=== PATIENT | male | born 1935 | race Caucasian/White ===

== ENCOUNTER 2017-06-17 13:43 | Observation (INO) | payer OTHER ==
[~2017-06-17 13:43] MED LIST: ALLO300 PO; AMLO5TAB22 PO; ASPI81 PO; GNP50LIQ PO; META28.3 PO; MILK250C2 PO; NAPR-576 PO; PERC5TAB12 PO; POLY255S PO; SIMV20TA PO; TOPR50TA PO
[2017-06-17 14:03] VITALS: BP 116/66; PULSE 58; RESP 18; TEMP 97.8; O2SAT 95
--- NOTE | 2017-06-17 14:08 | PD ---
HPI Chief Complaint: General Weakness Time Seen by Provider: 14:08 Travel History International Travel<30 days: No Contact w/Intl Traveler<30days: No Traveled to known affect area: No History of Present Illness HPI 82-year-old male came to the emergency room by EMS for a near syncopal episode. Patient says that when he woke up this morning he was feeling fine. He usually does not exercise much and sits in his chair. But today he decided to pull weeds out of the garden. It was very hot and he went outside and at that for one hour with his friend. After that the decided to sit down and drink beer. Patient says that he had eaten a bowl of cereal in the morning but did not drink much fluid. While he drank about half a can of the beer he started feeling very woozy. Patient says he cannot describe it very well but he has never felt like this before. He did not pass out but as per his friend they got glassy eyed. He asked his friend called 911 and get the EMS since this feeling did not go away. Patient did not have any chest pain or headache during that time. When EMS arrived he was unable to stand up and walk to the ambulance because the wooziness got worse. Currently patient says he feels little better. His heart rate upon arrival was in high 50s. Patient does not have any cardiac history. He is on high blood pressure medication. His 2 daughters are here both of home work in this hospital. As per them usually does not drink much fluid. He is awake and answering questions appropriately. He says that during this episode his clothes got completely drenched in sweat. EMS had to take his shirt off. [facility] Past Medical History Narrative Medical List of his past medical, surgical, social and family history is reviewed from the nursing note. Arthritis: Yes Asthma: No Autoimmune Disease: No Anxiety: No Depression: No Heart Rhythm Problems: No Cancer: No Cardiovascular Problems: No High Cholesterol: Yes Chest Pain: No Congestive Heart Failure: No COPD: No Cerebrovascular Accident: No Diabetes: No Endocrine: No Gastrointestinal Disorders: Yes (REFLUX) GERD: No Glaucoma: Yes Genitourinary: No Hepatitis: No Hiatal Hernia: No Hypertension: Yes Immune Disorder: No Kidney Stones: No Musculoskeletal: Yes (BACK, SHOULDERS, ARTHRITIS) Neurologic: Yes (FEET) Psychiatric: No Reproductive: No Respiratory: No Migraines: No Renal Failure: No Seizures: No Sleep Apnea: No Thyroid Disease: No Ulcer: No ?: Not Past Surgical History Abdominal Surgery: No AICD: No Arteriovenous Shunt: No Cardiac Surgery: No Ear Surgery: No Endocrine Surgery: No Eye Surgery: Yes (LEFT EYE, LEFT EYE CATARACT SX) Genitourinary Surgery: No Insulin Pump: No Joint Replacement: Yes (BILAT KNEES) Oral Surgery: No Pacemaker: No Thoracic Surgery: No Other Surgery: Yes Social History Alcohol Use: Yes (2 DRINKS A DAY) Tobacco Use: No Substance Use: No Allergies-Medications (Allergen,Severity, Reaction): Coded Allergies: acetaminophen (Unverified Allergy, Severe, Hallucinations, 06/17/17) cefazolin (Unverified Allergy, Severe, FEVER, 06/17/17) clindamycin (Unverified Allergy, Severe, FEVER, 06/17/17) hydrocodone (Unverified Allergy, Severe, Hallucinations, 06/17/17) tizanidine (Unverified Allergy, Severe, Lethargy, 06/17/17) morphine (Unverified Adverse Reaction, Mild, DOES NOT RELIEVE PAIN, ) Comments List of his allergies reviewed from the nursing note. Reported Meds & Prescriptions Reported Meds & Active Scripts Active Reported Aspirin Adult Low Strength (Aspirin) 81 Mg Tabdr 81 Mg PO DAILY Naprosyn (Naproxen) 500 Mg Tab 500 Mg PO BID Allopurinol 300 Mg Tab 300 Mg PO DAILY Zocor (Simvastatin) 20 Mg Tab 20 Mg PO HS Toprol XL (Metoprolol Succinate) 50 Mg Tab 50 Mg PO HS Amlodipine (Amlodipine Besylate) 5 Mg Tab 5 Mg PO DAILY Narrative Medication List of his home medications reviewed from the nursing note. Review of Systems Except as stated in HPI: all other systems reviewed are Neg Physical Exam Narrative GENERAL: Awake, alert, elderly, moderate distress SKIN: Focused skin assessment warm/dry. HEAD: Atraumatic. Normocephalic. EYES: Pupils equal and round. No scleral icterus. No injection or drainage. ENT: No nasal bleeding or discharge. Mucous membranes pink and moist. NECK: Trachea midline. No JVD. CARDIOVASCULAR: Regular rate and rhythm. No murmur appreciated. RESPIRATORY: No accessory muscle use. Clear to auscultation. Breath sounds equal bilaterally. GASTROINTESTINAL: Abdomen soft, non-tender, nondistended. Hepatic and splenic margins not palpable. MUSCULOSKELETAL: No obvious deformities. No clubbing. No cyanosis. No edema. NEUROLOGICAL: Awake and alert. No obvious cranial nerve deficits. Motor grossly within normal limits. Normal speech. PSYCHIATRIC: Appropriate mood and affect; insight and judgment normal. Data Data Last Documented VS Vital Signs Date Time Temp Pulse Resp B/P (MAP) Pulse Ox O2 Delivery O2 Flow Rate FiO2 06/17/17 15:10 62 16 122/67 (85) 59 16 119/67 (84) 65 17 131/69 (89) 06/17/17 14:10 98 Room Air 06/17/17 14:03 97.8 Orders Orders Iv Access Insert/Monitor (06/17/17 14:25) Electrocardiogram (06/17/17 ) Complete Blood Count With Diff (06/17/17 14:25) Basic Metabolic Panel (Bmp) (06/17/17 14:25) Coag Profile (06/17/17 14:25) Ckmb (Isoenzyme) Profile (06/17/17 14:27) Troponin I (06/17/17 14:27) Chest, Single Ap (06/17/17 14:27) Sodium Chlorid 0.9% 500 Ml Inj (Ns 500 M (06/17/17 14:30) Orthostatic Vital Signs (06/17/17 15:04) Admit Order (Ed Use Only) (06/17/17 16:22) Labs Laboratory Tests Test 06/17/17 14:20 White Blood Count 9.0 TH/MM3 Red Blood Count 4.75 MIL/MM3 Hemoglobin 15.6 GM/DL Hematocrit 47.2 % Mean Corpuscular Volume 99.2 FL Mean Corpuscular Hemoglobin 32.9 PG Mean Corpuscular Hemoglobin Concent 33.2 % Red Cell Distribution Width 13.9 % Platelet Count 184 TH/MM3 Mean Platelet Volume 8.7 FL Neutrophils (%) (Auto) 74.5 % Lymphocytes (%) (Auto) 15.2 % Monocytes (%) (Auto) 7.2 % Eosinophils (%) (Auto) 2.7 % Basophils (%) (Auto) 0.4 % Neutrophils # (Auto) 6.7 TH/MM3 Lymphocytes # (Auto) 1.4 TH/MM3 Monocytes # (Auto) 0.6 TH/MM3 Eosinophils # (Auto) 0.2 TH/MM3 Basophils # (Auto) 0.0 TH/MM3 CBC Comment DIFF FINAL Differential Comment Prothrombin Time 11.5 SEC Prothromb Time International Ratio 1.0 RATIO Activated Partial Thromboplast Time 24.3 SEC Blood Urea Nitrogen 13 MG/DL Creatinine 1.06 MG/DL Random Glucose 88 MG/DL Calcium Level 8.5 MG/DL Sodium Level 144 MEQ/L Potassium Level 4.9 MEQ/L Chloride Level 113 MEQ/L Carbon Dioxide Level 23.5 MEQ/L Anion Gap 8 MEQ/L Estimat Glomerular Filtration Rate 67 ML/MIN Total Creatine Kinase 74 U/L Troponin I LESS THAN 0.02 NG/ML MDM Medical Decision Making Medical Screen Exam Complete: Yes Emergency Medical Condition: Yes Medical Record Reviewed: Yes Interpretation(s) Twelve-lead EKG was reviewed by me. Normal sinus rhythm, normal axis, bradycardia, nonspecific ST-T wave changes. Heart rate of 57 bpm. Differential Diagnosis Dehydration, orthostatic hypotension, symptomatic bradycardia, cardiac arrhythmia Narrative Course 4:15 PM blood test results of back and within acceptable limit. Although his sodium and chloride are on the higher range which tells me he probably was somewhat hypovolemic. Patient received 1 L of IV fluid bolus. Chest x-rays within normal limits. Patient was not orthostatic. I explained to the patient that my main concern is if patient had either a significantly low heart rate or a cardiac arrhythmia which could have been the cause of this event. 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 Patient and his daughters agreed. Patient's orthostatic vital signs were negative. Patient says that he has never felt like this before and he thought he was going to . Procedures EKG Prior to Arrival: No Diagnosis Primary Impression: Symptomatic bradycardia Additional Impression: Near syncope Admitting Information Admitting Physician Requests: Observation Renee Cueto MD Jun 17, 2017 14:08
[2017-06-17] MEDS ORDERED: SODIUM CHLORID 0.9% 500 ML INJ 500 ML IV ONE (14:30)
[2017-06-17 15:10] VITALS: BP_SYST 119; BP_SYST 122; BP_SYST 131; BP_DIAS 67; BP_DIAS 69; RESP 16; RESP 17
[2017-06-17] MEDS ORDERED: ZOCO20TA PO (15:22)
[2017-06-17] MEDS ORDERED: PERC5TAB12 PO (15:22)
[2017-06-17] MEDS ORDERED: AMLO5TAB2 PO (15:22)
[2017-06-17] MEDS ORDERED: NAPR500 PO (15:22)
[2017-06-17] MEDS ORDERED: TOPR50TA PO (15:22)
[2017-06-17] MEDS ORDERED: ALLO300T2 PO (15:22)
[2017-06-17] MEDS ORDERED: ASPI1TAB91 PO (15:22)
[2017-06-17 15:25] LABS: AUTOMATED NEUTROPHIL # 6.7 TH/MM3 (1.8-7.7); BASOPHIL % 0.4 % (0.0-2.0); EOSINOPHIL # 0.2 TH/MM3 (0-0.4); EOSINOPHIL % 2.7 % (0.0-4.0); HEMATOCRIT 47.2 % (39.0-51.0); HEMO FLAGS DIFF FINAL; LYMPH % 15.2 % (9.0-44.0); LYMPHOCYTE # 1.4 TH/MM3 (1.0-4.8); MEAN CELL VOLUME 99.2 FL (80.0-100.0); MEAN CORPUSCULAR HEMOGLOBIN 32.9 PG (27.0-34.0); MEAN CORPUSCULAR HGB CONC 33.2 % (32.0-36.0); MONO % 7.2 % (0.0-8.0); NEUT % 74.5 % (16.0-70.0); PLATELET COUNT 184 TH/MM3 (150-450); RED BLOOD COUNT 4.75 MIL/MM3 (4.50-5.90); RED CELL DISTRIBUTION WIDTH 13.9 % (11.6-17.2)
[2017-06-17 15:44] LABS: APTT (PATIENT) 24.3 SEC (24.3-30.1); PROTHROMBIN TIME - PATIENT 11.5 SEC (9.8-11.6)
[2017-06-17 15:49] LABS: BICARBONATE 23.5 MEQ/L (21.0-32.0); POTASSIUM 4.9 MEQ/L (3.5-5.1)
[2017-06-17 15:56] LABS: CREATINE KINASE 74 U/L (39-308)
--- NOTE | 2017-06-17 16:11 | RADRPT ---
EXAM DATE/TIME: 06/17/2017 15:22 [place] COMPARISON: No previous studies available for comparison. INDICATIONS : Short of breath. MEDICAL HISTORY : None. SURGICAL HISTORY : None. ENCOUNTER: Initial ACUITY: 1 day PAIN SCORE: 0/10 LOCATION: Bilateral chest FINDINGS: Minimal linear parenchymal opacities in the left lung base and left midlung. No significant focal ple ural or parenchymal opacities. Cardiomediastinal contours are within normal limits. Bony thorax is in tact. CONCLUSION: 1. Mild left lower lobe and midlung atelectasis/scarring. 2. Otherwise, no acute cardiopulmonary disease. Chapincito Avina MD on June 17, 2017 at 16:08 Board Certified Radiologist. This report was verified electronically.
--- NOTE | 2017-06-17 17:45 | HHI.HP ---
[facility] Service Family Medicine Primary Care Physician Lyle Kaufman, DO Admission Diagnosis Near syncope, symptomatic bradycardia Diagnoses: International Travel<30 Days: No Contact w/Intl Traveler<30days: No Known Affected Area: No History of Present Illness Mr. Martinez is a 82-year-old male with a past medical history of hypertension, hyperlipidemia, spinal stenosis, AAA, and gout presents to the ER via EMS for near syncopal episode. The patient states that after working outside for approximately 1 hour, he sat down to drink a beer initiated when he became diaphoretic and dizzy. He also states that he had "dampened hearing" and felt like he can only hear and an echo. He cannot describe the events very well, but states this episode scared him and he had never felt like this before. He was accompanied by a family friend who reported to the EMS that he became "glassy" and "just didn't seem right." At that time he denied any blurry vision, chest pain, or shortness of breath. EMS was then called for transport to the emergency room as the patient could not walk at that time. He received fluids and transport to the emergency room and states he started to feel better. He reports the entire episode lasted approximately 45 minutes. He had little to drink this morning and is on blood pressure medication currently. He currently reports no chest pain, shortness of breath, diaphoresis, abdominal pain, NVD, or calf tenderness. (Albert Boston MD R2) Review of Systems Constitutional: DENIES: Fever, Chills Eyes: COMPLAINS OF: Blurred vision Ears, nose, mouth, throat: DENIES: Vertigo, Throat pain, Running Nose Respiratory: DENIES: Cough, Shortness of breath Cardiovascular: DENIES: Chest pain, Palpitations, Lower Extremity Edema, Orthopnea Gastrointestinal: DENIES: Abdominal pain, Diarrhea, Nausea, Vomiting Genitourinary: DENIES: Dysuria Musculoskeletal: DENIES: Joint pain Integumentary: DENIES: Rash Neurologic: DENIES: Headache Psychiatric: DENIES: Mood changes (Albert Boston MD R2) Past Family Social History Past Medical History Hypertension Hyperlipidemia Arthritis Gout Spinal stenosis Cataracts Abdominal aortic aneurysm Erectile dysfunction Past Surgical History Tonsillectomy Left rotator cuff Right rotator cuff Right carpal tunnel Left knee replacement Right knee and replacement Cataract removal L3/S1 laminectomy L5/S1 microdiscectomy (Albert Boston MD R2) Allergies: Coded Allergies: acetaminophen (Unverified Allergy, Severe, Hallucinations, 06/17/17) cefazolin (Unverified Allergy, Severe, FEVER, 06/17/17) clindamycin (Unverified Allergy, Severe, FEVER, 06/17/17) hydrocodone (Unverified Allergy, Severe, Hallucinations, 06/17/17) tizanidine (Unverified Allergy, Severe, Lethargy, 06/17/17) morphine (Unverified Adverse Reaction, Mild, DOES NOT RELIEVE PAIN, ) Family History Father -brain malignancy Mother -none reported Sister - ovarian cancer, COPD, vascular Social History Lives in [place] by himself with his dog. Able to complete ADLs. [place] - denies history Alcohol - 1-2 drinks per day 2oz of hard liquor Illicit - denies history (Albert Boston MD R2) Physical Exam Vital Signs Vital Signs Date Time Temp Pulse Resp B/P (MAP) Pulse Ox O2 Delivery O2 Flow Rate FiO2 06/17/17 15:10 62 16 122/67 (85) 59 16 119/67 (84) 65 17 131/69 (89) 06/17/17 14:10 58 18 98 Room Air 06/17/17 14:03 97.8 58 18 116/66 (83) 95 Physical Exam GENERAL: Well-nourished, well-developed elderly gentleman lying in bed in no acute distress. SKIN: Warm and dry. No rash. Currently not diaphoretic. HEENT: Atraumatic, normocephalic with EOMI. PERRLA. Mucous membranes dry. No rhinorrhea. Oropharynx clear with no erythema or exudate. No JVD, LAD, or thyroid abnormality appreciated. CARDIOVASCULAR: Regular rate and rhythm without obvious murmurs, gallops, or rubs. RESPIRATORY: Clear to auscultation bilaterally with no CRW. No increased work of breathing. GASTROINTESTINAL: Abdomen soft, non-tender, nondistended with positive bowel sounds. No masses appreciated. MUSCULOSKELETAL: No cyanosis or edema. Strength grossly WNL. 2+ pulses in all 4 extremities. No calf tenderness. BACK: Nontender without obvious deformity. No CVA tenderness. NEURO/PSYCH: Afocal. Awake, alert, and oriented x3. Cranial nerves II through XII intact. Normal sensation, strength, and range of motion. Laboratory Laboratory Tests Test 06/17/17 14:20 White Blood Count 9.0 Red Blood Count 4.75 Hemoglobin 15.6 Hematocrit 47.2 Mean Corpuscular Volume 99.2 Mean Corpuscular Hemoglobin 32.9 Mean Corpuscular Hemoglobin Concent 33.2 Red Cell Distribution Width 13.9 Platelet Count 184 Mean Platelet Volume 8.7 Neutrophils (%) (Auto) 74.5 Lymphocytes (%) (Auto) 15.2 Monocytes (%) (Auto) 7.2 Eosinophils (%) (Auto) 2.7 Basophils (%) (Auto) 0.4 Neutrophils # (Auto) 6.7 Lymphocytes # (Auto) 1.4 Monocytes # (Auto) 0.6 Eosinophils # (Auto) 0.2 Basophils # (Auto) 0.0 CBC Comment DIFF FINAL Differential Comment Prothrombin Time 11.5 Prothromb Time International Ratio 1.0 Activated Partial Thromboplast Time 24.3 Blood Urea Nitrogen 13 Creatinine 1.06 Random Glucose 88 Calcium Level 8.5 Sodium Level 144 Potassium Level 4.9 Chloride Level 113 Carbon Dioxide Level 23.5 Anion Gap 8 Estimat Glomerular Filtration Rate 67 Total Creatine Kinase 74 Troponin I LESS THAN 0.02 (Albert Boston MD R2) Result Diagram: 06/17/17141906/17/17 142 Caprini VTE Risk Assessment Caprini VTE Risk Assessment: Mod/High Risk (score >= 2) Caprini Risk Assessment Model Point Value = 1 Point Value = 2 Point Value = 3 Point Value = 5 Age 41-60 Minor surgery BMI > 25 kg/m2 Swollen legs Varicose veins or History of unexplained or recurrent spontaneous Oral contraceptives or hormone replacement Sepsis (< 1 month) Serious lung disease, including pneumonia (< 1 month) Abnormal pulmonary function Acute myocardial infarction Congestive heart failure (< 1 month) History of inflammatory bowel disease Medical patient at bed rest Age 61-74 Arthroscopic surgery Major open surgery (> 45 min) Laparoscopic surgery (> 45 min) Malignancy Confined to bed (> 72 hours) Immobilizing plaster cast Central venous access Age >= 75 History of VTE Family history of VTE Factor V Leiden Prothrombin [id number] Lupus anticoagulant Anticardiolipin antibodies Elevated serum homocysteine Heparin-induced thrombocytopenia Other congenital or acquired thrombophilia Stroke (< 1 month) Elective arthroplasty Hip, pelvis, or leg fracture Acute spinal cord injury (< 1 month) Prophylaxis Regimen Total Risk Factor Score Risk Level Prophylaxis Regimen 0-1 Low Early ambulation 2 Moderate Order ONE of the following: *Sequential Compression Device (SCD) *Heparin 5000 units SQ BID 3-4 Higher Order ONE of the following medications: *Heparin 5000 units SQ TID *Enoxaparin/Lovenox 40 mg SQ daily (WT < 150 kg, CrCl > 30 mL/min) *Enoxaparin/Lovenox 30 mg SQ daily (WT < 150 kg, CrCl > 10-29 mL/min) *Enoxaparin/Lovenox 30 mg SQ BID (WT < 150 kg, CrCl > 30 mL/min) AND/OR *Sequential Compression Device (SCD) 5 or more Highest Order ONE of the following medications: *Heparin 5000 units SQ TID (Preferred with Epidurals) *Enoxaparin/Lovenox 40 mg SQ daily (WT < 150 kg, CrCl > 30 mL/min) *Enoxaparin/Lovenox 30 mg SQ daily (WT < 150 kg, CrCl > 10-29 mL/min) *Enoxaparin/Lovenox 30 mg SQ BID (WT < 150 kg, CrCl > 30 mL/min) AND *Sequential Compression Device (SCD) (Albert Boston MD R2) Assessment and Plan Assessment and Plan Mr. Martinez is a 82-year-old male with a past medical history of hypertension, hyperlipidemia, spinal stenosis, AAA, and gout presents to the ER via EMS for near syncopal episode likely secondary to heat exhaustion. Code Status Full Code Discussed Condition With Dr. Cueto, ER physician Dr. Jason Moreno (Albert Boston MD R2) Attending Attestation Patient seen and examined. Case reviewed and discussed with the resident team. Agree with plan of care as discussed with me and documented in the resident note. pt seen on admission with the resident team in the ED. he is looking well after fluids (Yolanda Gomez MD) Problem List: (1) Near syncope ICD Codes: R55 - Syncope and collapse Status: Acute Plan: Patient presenting to emergency department after presyncopal episode likely due to heat exhaustion after working outside for over an hour. -Chest x-ray: Mild left lower lobe and mid lobe atelectasis/scarring. Otherwise no acute cardiopulmonary disease. -EKG: Sinus bradycardia with rate of 57 bpm. Normal intervals. No ST depression/ elevation appreciated. (Per medical team read.) -CBC: Within normal limits -BMP: Within normal limits -Troponin: Less than 0.02, trending 2 with EKG -CK: 74, trending 2 -Orthostatic vital signs: Within normal limits -TSH: Pending -Lipid profile: Pending Medications: -Normal saline at maintenance fluid rate of 140 mL per hour (2) Symptomatic bradycardia ICD Codes: R00.1 - Bradycardia, unspecified Status: Acute Plan: Patient presenting to emergency department with initial heart rate of 58 -Please see plan as above (3) Gout ICD Codes: M10.9 - Gout, unspecified Status: Chronic Plan: Patient with history of gout -Continue allopurinol 300 mg daily (4) Hypertension ICD Codes: I10 - Essential (primary) hypertension Status: Chronic Plan: Patient with chronic history of hypertension -Continue home amlodipine 5 mg daily, aspirin 81 mg daily, and metoprolol 50 mg daily at bedtime as tolerated (5) Hyperlipidemia ICD Codes: E78.5 - Hyperlipidemia, unspecified Status: Chronic Plan: Patient with chronic history of hyperlipidemia -Continue pravastatin 40 mg daily at bedtime (6) Nutrition, metabolism, and development symptoms ICD Codes: R63.8 - Other symptoms and signs concerning food and fluid intake Status: Acute Plan: Fluids: Maintenance fluids with normal saline at 140 mL per hour Diet: Heart healthy diet as tolerated Electrolytes: Within normal limits, continue to monitor Prophylaxis: Zofran when necessary for nausea or vomiting, ibuprofen when necessary for pain or fever, Colace when necessary for constipation, nitroglycerin when necessary for chest pain, hydroxyzine when necessary for insomnia, DuoNeb's when necessary for shortness of breath (7) No contraindication to deep vein thrombosis (DVT) prophylaxis ICD Codes: Z78.9 - Other specified health status Status: Acute Plan: -Heparin 5000 units every 8 hours -SCD/TEDs (Albert Boston MD R2) Problem Qualifiers (1) Gout: (2) Hypertension: Qualified Codes: I10 - Essential (primary) hypertension (3) Hyperlipidemia: Qualified Codes: E78.00 - Pure hypercholesterolemia, unspecified Albert Boston MD R2 Jun 17, 2017 17:45 Yolanda Gomez MD Jun 18, 2017 13:29
[2017-06-17 18:03] VITALS: BP 146/80; PULSE 62; RESP 17; TEMP 97.8; O2SAT 98
[2017-06-17 19:13] VITALS: BP 146/77; PULSE 64; RESP 18; O2SAT 96
[2017-06-17] MEDS ORDERED: PRAVASTATIN SOD 40 MG TAB PO SCH (21:00)
[2017-06-17] MEDS ORDERED: METOPROLOL SUCCINATE 50 MG EXTENDED RELEASE TAB PO SCH (21:00)
[2017-06-17] MEDS ORDERED: DOCUSATE SODIUM 100 MG CAP PO PRN (21:30)
[2017-06-17] MEDS ORDERED: IBUPROFEN 400 MG TAB PO PRN (21:30)
[2017-06-17] MEDS ORDERED: NITROGLYCERIN 0.4 MG SL 25 TABS/BTL SL PRN (21:30)
[2017-06-17] MEDS ORDERED: ONDANSETRON HCL 4 MG/2 ML VIAL IV PRN (21:30)
[2017-06-17] MEDS ORDERED: SODIUM CHLORIDE 0.9% FLUSH 10 ML FLUSH IV FLUSH PRN (21:30)
[2017-06-17 21:31] VITALS: BP 151/79; PULSE 64; RESP 18; O2SAT 98
[2017-06-17 23:28] VITALS: BP 131/69; PULSE 67; RESP 20; TEMP 97.8; O2SAT 97
[2017-06-17] MEDS: HEPARIN SODIUM - SQ 10,000 UNITS/ML VIAL SQ SCH (23:32)
[2017-06-17 23:51] LABS: CREATINE KINASE 52 U/L (39-308)
[2017-06-18 00:24] VITALS: PULSE 61
[2017-06-18 00:28] VITALS: O2SAT 98
[2017-06-18] MEDS ORDERED: RESP: ALBUTEROL 2.5 MG/IPRATROPIUM 0.5 MG NEB (PRN) NEB (01:30)
[2017-06-18] MEDS: SODIUM CHLOR 0.9% 1000 ML INJ 1,000 ML IV SCH ×2 (01:59→08:46)
[2017-06-18 03:52] VITALS: PULSE 62
[2017-06-18 04:15] VITALS: BP 123/70; PULSE 61; RESP 19; TEMP 97.8; O2SAT 95
[2017-06-18 05:11] LABS: AUTOMATED NEUTROPHIL # 4.5 TH/MM3 (1.8-7.7); BASOPHIL % 0.6 % (0.0-2.0); EOSINOPHIL # 0.3 TH/MM3 (0-0.4); HEMATOCRIT 46.6 % (39.0-51.0); HEMO FLAGS DIFF FINAL; LYMPH % 28.2 % (9.0-44.0); LYMPHOCYTE # 2.1 TH/MM3 (1.0-4.8); MEAN CELL VOLUME 99.7 FL (80.0-100.0); MEAN CORPUSCULAR HEMOGLOBIN 33.2 PG (27.0-34.0); MEAN CORPUSCULAR HGB CONC 33.3 % (32.0-36.0); MONO % 7.4 % (0.0-8.0); NEUT % 59.8 % (16.0-70.0); PLATELET COUNT 157 TH/MM3 (150-450); RED BLOOD COUNT 4.67 MIL/MM3 (4.50-5.90); RED CELL DISTRIBUTION WIDTH 13.9 % (11.6-17.2); WHITE BLOOD COUNT 7.5 TH/MM3 (4.0-11.0)
[2017-06-18 05:46] LABS: ANION GAP 8 MEQ/L (5-15); BLOOD UREA NITROGEN 13 MG/DL (7-18); CHLORIDE 111 MEQ/L (98-107); GLOMERULAR FILTRATION RATE 90 ML/MIN (>89); LDL CHOLESTEROL 46 MG/DL (0-99); POTASSIUM 3.8 MEQ/L (3.5-5.1); SODIUM (NA) 141 MEQ/L (136-145)
[2017-06-18 05:47] LABS: CREATINE KINASE 42 U/L (39-308)
[2017-06-18] MEDS: HEPARIN SODIUM - SQ 10,000 UNITS/ML VIAL SQ SCH (06:26)
[2017-06-18 07:00] VITALS: PULSE 66
[2017-06-18 08:50] VITALS: BP 135/73; PULSE 62; RESP 16; TEMP 97.7; O2SAT 96
[2017-06-18] MEDS ORDERED: ALLOPURINOL 300 MG TAB PO SCH (09:00)
[2017-06-18] MEDS ORDERED: ASPIRIN EC 81 MG TABEC PO SCH (09:00)
[2017-06-18] MEDS ORDERED: amLODIPine BESYLATE 5 MG TAB PO SCH (09:00)
[2017-06-18] MEDS ORDERED: SODIUM CHLORIDE 0.9% FLUSH 10 ML FLUSH IV FLUSH SCH (09:00)
--- NOTE | 2017-06-18 09:32 | HHI.DCPOC ---
Discharge Care Plan Diagnosis: (1) Near syncope Goals to Promote Your Health * To prevent worsening of your condition and complications * To maintain your health at the optimal level Directions to Meet Your Goals Take your medications as prescribed Follow your dietary instruction Follow activity as directed Keep your appointments as scheduled Take your immunizations and boosters as scheduled If your symptoms worsen call your PCP, if no PCP go to Urgent Care Center or Emergency Room Smoking is Dangerous to Your Health. Avoid second hand smoke Call the 24-hour hour crisis hotline for domestic abuse at Yadira Oshea MD R2 Jun 18, 2017 09:32
--- NOTE | 2017-06-18 09:35 | HHI.HP ---
[facility] Service Family Medicine Primary Care Physician Lyle Kaufman, DO Admission Diagnosis Near syncope, symptomatic bradycardia Diagnoses: (1) Near syncope Diagnosis: Principal (2) Symptomatic bradycardia Diagnosis: Principal (3) Hypertension Diagnosis: Principal (4) Hyperlipidemia Diagnosis: Principal (5) Nutrition, metabolism, and development symptoms Diagnosis: Principal (6) No contraindication to deep vein thrombosis (DVT) prophylaxis Diagnosis: Principal (7) Gout Diagnosis: Principal International Travel<30 Days: No Contact w/Intl Traveler<30days: No Known Affected Area: No History of Present Illness Mr. Martinez is a 82-year-old male with a past medical history of hypertension, hyperlipidemia, spinal stenosis, AAA, and gout who presented to the ER via EMS for near syncopal episode. The patient states that after working outside for approximately 1 hour (at noon in May in [place]), he sat down to drink a beer when he became diaphoretic and dizzy. He also states that he had "dampened hearing" and felt like he can only hear an echo. He cannot describe the events very well, but states this episode scared him and he had never felt like this before. He was accompanied by a family friend who reported to the EMS that he became "glassy" and "just didn't seem right." At that time he denied any blurry vision, chest pain, or shortness of breath. EMS was then called for transport to the emergency room as the patient could not walk at that time. He received fluids and transport to the emergency room and states he started to feel better. He reports the entire episode lasted approximately 45 minutes. He had little to drink and is on blood pressure medication currently. He currently reports no chest pain, shortness of breath, diaphoresis, abdominal pain, NVD, or calf tenderness. He felt well once he has some iv fluids and rested for a little while and is 100 % back to normal at this time and eager to go home. Review of Systems Other Constitutional: DENIES: Fever, Chills Eyes: COMPLAINS OF: Blurred vision Ears, nose, mouth, throat: DENIES: Vertigo, Throat pain, Running Nose Respiratory: DENIES: Cough, Shortness of breath Cardiovascular: DENIES: Chest pain, Palpitations, Lower Extremity Edema, Orthopnea Gastrointestinal: DENIES: Abdominal pain, Diarrhea, Nausea, Vomiting Genitourinary: DENIES: Dysuria Musculoskeletal: DENIES: Joint pain Integumentary: DENIES: Rash Neurologic: DENIES: Headache Psychiatric: DENIES: Mood changes Past Family Social History Past Medical History Hypertension Hyperlipidemia Arthritis Gout Spinal stenosis Cataracts Abdominal aortic aneurysm Erectile dysfunction Past Surgical History Tonsillectomy Left rotator cuff Right rotator cuff Right carpal tunnel Left knee replacement Right knee and replacement Cataract removal L3/S1 laminectomy L5/S1 microdiscectomy Allergies: Coded Allergies: acetaminophen (Unverified Allergy, Severe, Hallucinations, 06/17/17) cefazolin (Unverified Allergy, Severe, FEVER, 06/17/17) clindamycin (Unverified Allergy, Severe, FEVER, 06/17/17) hydrocodone (Unverified Allergy, Severe, Hallucinations, 06/17/17) tizanidine (Unverified Allergy, Severe, Lethargy, 06/17/17) morphine (Unverified Adverse Reaction, Mild, DOES NOT RELIEVE PAIN, ) Family History Father -brain malignancy Mother -none reported Sister - ovarian cancer, COPD, vascular Social History Lives in [place] by himself with his dog. Able to complete ADLs. Tobacco - denies history Alcohol - 1-2 drinks per day 2oz of hard liquor Illicit - denies history Physical Exam Vital Signs Vital Signs Date Time Temp Pulse Resp B/P (MAP) Pulse Ox O2 Delivery O2 Flow Rate FiO2 06/18/17 08:50 97.7 62 16 135/73 (93) 96 06/18/17 08:03 21 06/18/17 04:15 97.8 61 19 123/70 (87) 95 06/18/17 03:52 62 06/18/17 00:28 98 21 06/18/17 00:24 61 06/17/17 23:28 97.8 67 20 131/69 (89) 97 06/17/17 22:23 06/17/17 21:31 64 18 151/79 (103) 98 Room Air 06/17/17 19:13 64 18 146/77 (100) 96 Room Air 06/17/17 18:03 97.8 62 17 146/80 (102) 98 Room Air 06/17/17 15:10 62 16 122/67 (85) 59 16 119/67 (84) 65 17 131/69 (89) 06/17/17 14:10 58 18 98 Room Air 06/17/17 14:03 97.8 58 18 116/66 (83) 95 Physical Exam GENERAL: Well-nourished, well-developed elderly gentleman lying in bed in no acute distress. He was able to get out of bed and walked around this am without any problems SKIN: Warm and dry. No rash. Currently not diaphoretic. HEENT: Atraumatic, normocephalic with EOMI. PERRLA. Mucous membranes dry. No rhinorrhea. Oropharynx clear with no erythema or exudate. No JVD, LAD, or thyroid abnormality appreciated. CARDIOVASCULAR: Regular rate and rhythm without obvious murmurs, gallops, or rubs. RESPIRATORY: Clear to auscultation bilaterally with no CRW. No increased work of breathing. GASTROINTESTINAL: Abdomen soft, non-tender, nondistended with positive bowel sounds. No masses appreciated. MUSCULOSKELETAL: No cyanosis or edema. Strength grossly WNL. 2+ pulses in all 4 extremities. No calf tenderness. BACK: Nontender without obvious deformity. No CVA tenderness. NEURO/PSYCH: Afocal. Awake, alert, and oriented x3. Cranial nerves II through XII intact. Normal sensation, strength, and range of motion. Laboratory Laboratory Tests Test 06/17/17 14:20 06/17/17 22:54 06/18/17 04:20 White Blood Count 9.0 7.5 Red Blood Count 4.75 4.67 Hemoglobin 15.6 15.5 Hematocrit 47.2 46.6 Mean Corpuscular Volume 99.2 99.7 Mean Corpuscular Hemoglobin 32.9 33.2 Mean Corpuscular Hemoglobin Concent 33.2 33.3 Red Cell Distribution Width 13.9 13.9 Platelet Count 184 157 Mean Platelet Volume 8.7 8.8 Neutrophils (%) (Auto) 74.5 59.8 Lymphocytes (%) (Auto) 15.2 28.2 Monocytes (%) (Auto) 7.2 7.4 Eosinophils (%) (Auto) 2.7 4.0 Basophils (%) (Auto) 0.4 0.6 Neutrophils # (Auto) 6.7 4.5 Lymphocytes # (Auto) 1.4 2.1 Monocytes # (Auto) 0.6 0.6 Eosinophils # (Auto) 0.2 0.3 Basophils # (Auto) 0.0 0.0 CBC Comment DIFF FINAL DIFF FINAL Differential Comment Prothrombin Time 11.5 Prothromb Time International Ratio 1.0 Activated Partial Thromboplast Time 24.3 Blood Urea Nitrogen 13 13 Creatinine 1.06 0.82 Random Glucose 88 93 Calcium Level 8.5 8.3 Sodium Level 144 141 Potassium Level 4.9 3.8 Chloride Level 113 111 Carbon Dioxide Level 23.5 22.0 Anion Gap 8 8 Estimat Glomerular Filtration Rate 67 90 Total Creatine Kinase 74 52 42 Troponin I LESS THAN 0.02 LESS THAN 0.02 LESS THAN 0.02 Triglycerides Level 233 Cholesterol Level 123 LDL Cholesterol 46 HDL Cholesterol 30.0 Cholesterol/HDL Ratio 4.10 Thyroid Stimulating Hormone 3rd Gen 2.190 Result Diagram: 06/18/1741906/18/17419 Caprini VTE Risk Assessment Caprini VTE Risk Assessment: Mod/High Risk (score >= 2) Caprini Risk Assessment Model Point Value = 1 Point Value = 2 Point Value = 3 Point Value = 5 Age 41-60 Minor surgery BMI > 25 kg/m2 Swollen legs Varicose veins or History of unexplained or recurrent spontaneous Oral contraceptives or hormone replacement Sepsis (< 1 month) Serious lung disease, including pneumonia (< 1 month) Abnormal pulmonary function Acute myocardial infarction Congestive heart failure (< 1 month) History of inflammatory bowel disease Medical patient at bed rest Age 61-74 Arthroscopic surgery Major open surgery (> 45 min) Laparoscopic surgery (> 45 min) Malignancy Confined to bed (> 72 hours) Immobilizing plaster cast Central venous access Age >= 75 History of VTE Family history of VTE Factor V Leiden Prothrombin [id number] Lupus anticoagulant Anticardiolipin antibodies Elevated serum homocysteine Heparin-induced thrombocytopenia Other congenital or acquired thrombophilia Stroke (< 1 month) Elective arthroplasty Hip, pelvis, or leg fracture Acute spinal cord injury (< 1 month) Prophylaxis Regimen Total Risk Factor Score Risk Level Prophylaxis Regimen 0-1 Low Early ambulation 2 Moderate Order ONE of the following: *Sequential Compression Device (SCD) *Heparin 5000 units SQ BID 3-4 Higher Order ONE of the following medications: *Heparin 5000 units SQ TID *Enoxaparin/Lovenox 40 mg SQ daily (WT < 150 kg, CrCl > 30 mL/min) *Enoxaparin/Lovenox 30 mg SQ daily (WT < 150 kg, CrCl > 10-29 mL/min) *Enoxaparin/Lovenox 30 mg SQ BID (WT < 150 kg, CrCl > 30 mL/min) AND/OR *Sequential Compression Device (SCD) 5 or more Highest Order ONE of the following medications: *Heparin 5000 units SQ TID (Preferred with Epidurals) *Enoxaparin/Lovenox 40 mg SQ daily (WT < 150 kg, CrCl > 30 mL/min) *Enoxaparin/Lovenox 30 mg SQ daily (WT < 150 kg, CrCl > 10-29 mL/min) *Enoxaparin/Lovenox 30 mg SQ BID (WT < 150 kg, CrCl > 30 mL/min) AND *Sequential Compression Device (SCD) Assessment and Plan Assessment and Plan Mr. Martinez is a 82-year-old male with a past medical history of hypertension, hyperlipidemia, spinal stenosis, AAA, and gout presented to the ER via EMS for near syncopal episode likely secondary to heat exhaustion vs as pt said "I was being stupid going out to do yard work in the middle of the day". He is doing very well today and is eager to be D/[place]orge home. He will be more careful in the heat as he knows his medicines can effect his ability to handle the heat Problem List: (1) Near syncope ICD Codes: R55 - Syncope and collapse Status: Acute Plan: Patient presented to emergency department after presyncopal episode likely due to heat exhaustion after working outside for over an hour. -Chest x-ray: Mild left lower lobe and mid lobe atelectasis/scarring. Otherwise no acute cardiopulmonary disease. -EKG: Sinus bradycardia with rate of 57 bpm (on beta alea). Normal intervals. No ST depression/elevation appreciated. (Per medical team read.) -CBC: Within normal limits -BMP: Within normal limits -Troponin: Less than 0.02, trending 2 with EKG -CK: 74, trending 2 -Orthostatic vital signs: Within normal limits -TSH: Pending -Lipid profile: Pending Medications: -Normal saline at maintenance fluid rate of 140 mL per hour (2) Symptomatic bradycardia ICD Codes: R00.1 - Bradycardia, unspecified Status: Acute Plan: Patient presenting to emergency department with initial heart rate of 58 -Please see plan as above (3) Gout ICD Codes: M10.9 - Gout, unspecified Status: Chronic Plan: Patient with history of gout -Continue allopurinol 300 mg daily (4) Hypertension ICD Codes: I10 - Essential (primary) hypertension Status: Chronic Plan: Patient with chronic history of hypertension -Continue home amlodipine 5 mg daily, aspirin 81 mg daily, and metoprolol 50 mg daily at bedtime as tolerated (5) Hyperlipidemia ICD Codes: E78.5 - Hyperlipidemia, unspecified Status: Chronic Plan: Patient with chronic history of hyperlipidemia -Continue pravastatin 40 mg daily at bedtime (6) Nutrition, metabolism, and development symptoms ICD Codes: R63.8 - Other symptoms and signs concerning food and fluid intake Status: Acute Plan: Fluids: Maintenance fluids with normal saline at 140 mL per hour Diet: Heart healthy diet as tolerated Electrolytes: Within normal limits, continue to monitor Prophylaxis: Zofran when necessary for nausea or vomiting, ibuprofen when necessary for pain or fever, Colace when necessary for constipation, nitroglycerin when necessary for chest pain, hydroxyzine when necessary for insomnia, DuoNeb's when necessary for shortness of breath (7) No contraindication to deep vein thrombosis (DVT) prophylaxis ICD Codes: Z78.9 - Other specified health status Status: Acute Plan: -Heparin 5000 units every 8 hours -SCD/TEDs Problem Qualifiers (1) Hypertension: Qualified Codes: I10 - Essential (primary) hypertension (2) Hyperlipidemia: Qualified Codes: E78.00 - Pure hypercholesterolemia, unspecified (3) Gout: Yolanda Gomez MD Jun 18, 2017 09:35
--- NOTE | 2017-06-18 19:37 | EKG ---
Date Performed: 06/18/2017 Time Performed: 04:21:39 PTAGE: 82 years EKG: Sinus rhythm NORMAL ECG PREVIOUS TRACING : 06/17/2017 22.12 Compared to prior tracing no significant change DOCTOR: Luis Avelar Interpretating Date/Time 06/18/2017 19:36:23
--- NOTE | 2017-06-18 19:43 | EKG ---
Date Performed: 06/17/2017 Time Performed: 22:12:21 PTAGE: 82 years EKG: Sinus rhythm NORMAL ECG PREVIOUS TRACING : 06/17/2017 14.02 Compared to prior tracing no significant change DOCTOR: Luis Avelar Interpretating Date/Time 06/18/2017 19:42:17
--- NOTE | 2017-06-18 20:00 | EKG ---
Date Performed: 06/17/2017 Time Performed: 14:02:16 PTAGE: 82 years EKG: SINUS BRADYCARDIA BORDERLINE ECG PREVIOUS TRACING : 08/03/2015 16.13 Compared to prior tracing no significant change DOCTOR: Luis Avelar Interpretating Date/Time 06/18/2017 19:58:56
== END 2017-06-18 10:44 | disposition home or self-care (01) ==
LOC: NEPE 13:43 → NEDA 16:23 → NEDH 21:16 → NEPHCDU 23:00
PROVIDERS: ADMIT Family Medicine; ATTEND Family Medicine
DX: T67.5XXA Heat exhaustion, unspecified, initial encounter (principal); R55 Syncope and collapse; I10 Essential (primary) hypertension; E78.00 Pure hypercholesterolemia, unspecified; G47.00 Insomnia, unspecified; J98.11 Atelectasis; M10.9 Gout, unspecified; K21.9 Gastro-esophageal reflux disease without esophagitis; Z79.82 Long term (current) use of aspirin; Z79.899 Other long term (current) drug therapy; Z96.652 Presence of left artificial knee joint
CPT/HCPCS: 71010; 80048; 80061; 82550; 84443; 84484; 85025; 85610; 85730; 93005; 96360; 96361; 96372; 97161; 99285; G0378; G8987; G8988; J1644; J7030; J7040